=== PATIENT | female | born 1965 | race Caucasian/White ===

== ENCOUNTER 2019-03-18 09:44 | Emergency (ER) | payer BC, SELFPAY ==
[2019-03-18 09:47] VITALS: BP 143/95; PULSE 112; RESP 18; TEMP 36.7; O2SAT 98
--- NOTE | 2019-03-18 09:51 | ED.GENADUL_ITS ---
Discharge Plan Disposition Patient Disposition: HOME Condition: Stable Discharge Details Chief Complaint: RespSymp Clinical Impression: Sinusitis, Cough Primary Care Provider: Kathleen Wise ED Provider: Sol Traore Home Meds and New Rx's Prescriptions: New amoxicillin-pot clavulanate [Augmentin] 875-125 mg tablet 1 tab PO BID 10 Days Qty: 20 RF: 0 benzonatate [Tessalon Perles] 100 mg capsule 100 mg PO TID PRN (Reason: cough) Qty: 14 RF: 0 albuterol sulfate 90 mcg/actuation aerosol powdr breath activated 2 inh IH Q6H PRN (Reason: shortness of breath or wheezing) Qty: 1 RF: 0 Discharge Instructions Instructions: Sinusitis (ED), Acute Cough (ED) Additional Instructions: Alternate tylenol and motrin as needed and directed for pain. Drink plenty of fluids and get plenty of rest. If you have no relief in symptoms in the next 2 days, you may start the antibiotics. You can also try [id number] Sudafed, DayQuil, NyQuil to help with congestion and cough. Be sure to watch your daily intake of Tylenol as DayQuil and NyQuil contain tylenol as well. Follow-up with your primary care doctor in 1 week. Return to the emergency department with any worsening or new concerning symptoms. Stand Alone Forms: Work Release Discharge Data Discharge Physician: Sol Traore Medical Decision Making 53-year-old female presents with productive cough, nasal congestion with green discharge, sore throat and body aches for the past 4 days. Denies fever. Admits to change in appetite. States the cough and sore throat is the main complaint. Normal ENT exam. Oropharynx normal to inspection without erythema, exudates, peritonsillar mass. Uvula midline. No drooling, trismus, submandibular swelling. Lungs clear but slightly diminished throughout. Differential diagnosis includes influenza, viral syndrome, pharyngitis, sinusitis, bronchitis. As patient has no fever, complaint of vomiting or diarrhea, influenza less likely. As she has normal respiratory rate and oxygen saturation with equal breath sounds, do not suspect pneumonia. Patient given a DuoNeb here with improvement of breath sounds but no improvement of sore throat. She was given a dose of Motrin for her sore throat. Do not see an indication for testing for influenza as this is outside the treatment window, or for pharyngitis as clinically does not appear consistent with this. We will give a prescription for albuterol, Tessalon Perles to help with cough. Will also give a prescription for antibiotics to start if symptoms do not improve or worsen. Advised to follow up with the primary care doctor for re-evaluation. Usual and customary return precautions given prior to discharge. HPI General Mode of arrival: ambulatory . Date/Time Provider Initiated Documentation: 03/18/19 09:50 . Limitations to Documentation: no limitations . Information obtained by: patient . History of Present Illness 53 year old F presents to the emergency department with the chief complaint of cough, sore th roat, Patient started experiencing this day(s) (4) and it has been constant. No relieving factors improve symptom(s), No exacerbating factors reported . Patient notes cough and loss of appetite; denies chest pain, diaphoresis, fever/chills, headaches, malaise, nausea/vomiting, rash, seizure, shortness of breath, syncope and weakness. Patient did receive the following treatments prior to arrival, none Related Data Home Medications Medication Instructions Recorded Confirmed albuterol sulfate 2 inh IH Q6H PRN #1 each 03/18/19 amoxicillin-pot clavulanate 1 tab PO BID 10 Days #20 tab 03/18/19 [Augmentin] benzonatate [Tessalon Perles] 100 mg PO TID PRN #14 cap 03/18/19 Previous Rx's Medication Instructions Recorded albuterol sulfate 2 inh IH Q6H PRN #1 each 03/18/19 amoxicillin-pot clavulanate 1 tab PO BID 10 Days #20 tab 03/18/19 [Augmentin] benzonatate [Tessalon Perles] 100 mg PO TID PRN #14 cap 03/18/19 Allergies Allergy/AdvReac Type Severity Reaction Status Date / Time No Known Allergies Allergy Unverified 03/18/19 09:51 General Stated Complaint: RespSymp SHAUNA: 3 Review of Systems All systems reviewed & are unremarkable except as noted in HPI and below Constitutional Constitutional: Reports as per HPI, Denies chills and Denies fever(s) Eyes Eyes: Denies blurry vision ENT Ears, Nose, Mouth, and Throat: Denies dizziness, Denies sore throat and Denies throat swelling Cardiovascular Cardiovascular: Denies chest pain and Denies dyspnea Respiratory Respiratory: Denies cough and Denies dyspnea Gastrointestinal Gastrointestinal: Denies abdominal pain, Denies diarrhea and Denies vomiting Genitourinary Genitourinary: Denies hematuria and Denies dysuria Musculoskeletal Musculoskeletal: Denies back pain and Denies numbness Integumentary/Breasts Skin/Breast: Denies lesions and Denies rash Neurologic Neurologic: Denies dizziness, Denies focal weakness and Denies numbness Allergic/Immunologic Allergic/Immunologic: Denies throat swelling PFSH Social History Smoking/Tobacco Use Status: Never Alcohol Intake: never Substance use type: does not use Do you feel safe at home: Yes Do you feel safe in your relationship?: Yes Exam Const General: cooperative, healthy appearing and no acute distress HENVT Head: normal to inspection Ears: hearing grossly normal bilaterally, external ears normal and TM's normal bilaterally General nose exam: external nose normal Face and sinus: normal facial exam Mouth: oral mucosae normal Throat: posterior oropharynx normal Eyes General: appearance normal, both eyes and all related structures Neck Neck: normal visual inspection Resp Effort & Inspection: normal respiratory effort and able to speak in complete sentences Auscultation: diminished lung sounds bilaterally (mildly diminished) throughout, no rhonchi and no wheezes Cardio Rate: regular rate Rhythm: regular rhythm Skin General skin exam: no rashes or lesions noted Neuro General: alert, awake and oriented x3 Motor: muscle tone normal throughout Extrem General: normal to inspection and full ROM Psych Appearance: grossly normal Affect: normal affect Course Vital Signs Vital signs: Temperature Source Temporal Artery Scan 03/18/19 09:47 Blood Pressure Position Sitting 03/18/19 09:47 Oxygen Delivery Method Room Air 03/18/19 09:47 Oxygen Flow Rate 0 03/18/19 09:47 Pain Level 5 03/18/19 09:47 Comment 03/18/19 09:47
[2019-03-18] MEDS: Albuterol/Ipratropium 3 ML UPD VIAL (10:06)
[2019-03-18] MEDS: Ibuprofen 600 MG TAB PO (10:30)
[2019-03-18 10:36] VITALS: RESP 1
== END 2019-03-18 10:39 | disposition home or self-care (01) ==
PROVIDERS: Emergency Provider Physician Assistant; PCP Student in an Organized Health Care Education/Training Program
DX: J01.90 Acute sinusitis, unspecified (principal); R05 Cough; J02.9 Acute pharyngitis, unspecified; R09.81 Nasal congestion
CPT/HCPCS: 94640; 99283; J7620